=== PATIENT | male | born 1955 | race Caucasian/White ===

== ENCOUNTER 2020-10-11 00:30 | Inpatient (IN) | payer BC, SELFPAY ==
[2020-10-11] MEDS ORDERED: Aspirin 325 MG TAB ONE (04:18)
[2020-10-11] MEDS ORDERED: cloNIDine 0.1 MG TAB ONE (04:18)
[2020-10-11 04:40] LABS: Bilirubin Negative (Negative); Blood, Urine Negative (Negative); Clarity Clear (Clear); Glucose, Urine (Dipstick) 70 mg/dL (Negative); Ketone, Urine Negative (Negative); Leukocyte Negative Leu/uL (Negative); Nitrite Negative (Negative); Protein, Urine (Dipstick) Negative (Neg-Trace); Urobilinogen Normal mg/dL (Less than 2); pH, Urine 6.5 (5.0-9.0)
[2020-10-11 04:51] LABS: #Eosinphils 0.2 thou/uL (0.0-0.7); #Monocytes 0.6 thou/uL (0.11-0.59); #Neutrophils 5.1 thou/uL (1.40-6.50); %Basophils 0.4 % (0.0-1.0); %Eosinophils 2.8 % (0.0-10.0); %Lymphocytes 24.8 % (21.0-51.0); Hemoglobin 11.6 g/dL (14.0-18.0); Mean Corpuscular HGB CONC 33.5 g/dL (32.0-36.0); Mean Corpuscular Hemoglobin 30.7 pg (27.0-31.0); Mean Corpuscular Volume 91.5 fL (78.0-98.0); Mean Platelet Volume 8.7 fL (7.4-10.4); Platelet Count 243 thou/uL (130-400); RBC Distribution Width 13.2 % (11.5-14.5); Red Blood Cell (RBC) Count 3.79 mill/uL (4.70-6.10)
[2020-10-11 05:04] LABS: ALT (SGPT) 14 U/L (8-55); AST (SGOT) 14 U/L (5-34); Albumin 4.2 g/dL (3.4-4.8); Alkaline Phosphatase 93 U/L (40-110); Anion Gap 15 mmol/L (10-20); BUN (Urea Nitrogen) 37 mg/dL (8.4-25.7); Bilirubin, Total 0.4 mg/dL (0.2-1.2); Calc. Creatinine Clearance 0 mL/min (70-130); Carbon Dioxide 26 mmol/L (23-31); Chloride 101 mmol/L (98-107); Globulin 3.4 g/dL (2.4-3.5); Glucose 233 mg/dL (80-115); Potassium 4.6 mmol/L (3.5-5.1); Protein, Total 7.6 g/dL (5.8-8.1); Sodium 137 mmol/L (136-145)
[2020-10-11 05:24] LABS: PTT 26.8 sec (22.9-36.1)
[2020-10-11] MEDS ORDERED: hydrALAZINE 20 MG/ML VIAL ONE (05:26)
[2020-10-11] MEDS ORDERED: Loperamide HCl 2 MG CAP PO PRN (07:38)
[2020-10-11] MEDS ORDERED: HumaLOG 300 UNITS/3 ML VIAL SC PRN (07:38)
[2020-10-11] MEDS ORDERED: Bisacodyl 10 MG SUPP PR PRN (07:38)
[2020-10-11] MEDS ORDERED: HYDROcodone/Acetaminophen 5/325 mg Tablet PO PRN (07:38)
[2020-10-11] MEDS ORDERED: Senokot S 8.6-50 MG TAB PO PRN (07:38)
[2020-10-11] MEDS ORDERED: Dextrose 5% in Water 1,000 ML IV PRN (07:38)
[2020-10-11] MEDS ORDERED: Zolpidem Tartrate 5 MG TAB PO PRN (07:38)
[2020-10-11] MEDS ORDERED: Calcium Carbonate 500 MG ChewTAB PO PRN (07:38)
[2020-10-11] MEDS ORDERED: Labetalol HCl 100 MG/20 ML VIAL SLOW IVP PRN (07:38)
[2020-10-11] MEDS ORDERED: Guaifenesin DM 100-10/5 ML UDCUP PO PRN (07:38)
[2020-10-11] MEDS ORDERED: Sodium Chloride 0.65% Nasal 44 ML BOT EA NARE PRN (07:38)
[2020-10-11] MEDS ORDERED: Ondansetron ODT 4 MG TAB PO PRN (07:38)
[2020-10-11] MEDS ORDERED: Cepastat Lozenges 1 LOZ PO PRN (07:38)
[2020-10-11] MEDS ORDERED: Loratadine 10 MG TAB PO PRN (07:38)
[2020-10-11] MEDS ORDERED: hydrALAZINE 20 MG/ML VIAL SLOW IVP PRN (07:38)
[2020-10-11] MEDS ORDERED: Ondansetron PF 4 MG/2 ML Vial IVP PRN (07:38)
[2020-10-11] MEDS ORDERED: Nitroglycerin 0.4 MG TAB (25 Tab Bottle) SL PRN (07:38)
[2020-10-11] MEDS ORDERED: Dextrose 50% Abboject 50 ML SYRINGE SLOW IVP PRN (07:38)
[2020-10-11] MEDS ORDERED: Iopamidol-370 76% 500 ML 1 ML ONE (09:06)
[2020-10-11] MEDS: Heparin 5,000 UNITS/ML VIAL SC SCH ×2 (09:50→21:07)
[2020-10-11 17:32] VITALS: BMI 32.8
[2020-10-11] MEDS: Atorvastatin Calcium 40 MG TAB PO SCH (20:57)
[2020-10-11 22:22] LABS: Amphetamine Not Detected (NotDetected); Barbiturates Screen Not Detected (NotDetected); Benzodiazepine Screen Not Detected (NotDetected); Cocaine Metabolite Screen Not Detected (NotDetected); Medtox Control Line Valid? VALID (VALID); Medtox Reader # READER 4; Methadone Not Detected (NotDetected); Methamphetamine Not Detected (NotDetected); Opiate Screen Not Detected (NotDetected); Oxycodone Screen Not Detected (NotDetected); Phencyclidine (PCP) Not Detected (NotDetected); THC/Cannabinoid Screen Not Detected (NotDetected); Tricyclic Screen Not Detected (NotDetected)
[2020-10-11 22:39] LABS: Creatinine, Urine 49.62 mg/dL (63-166)
[2020-10-12 05:19] LABS: #Eosinphils 0.2 thou/uL (0.0-0.7); #Lymphocytes 1.3 thou/uL (1.20-3.40); #Monocytes 0.7 thou/uL (0.11-0.59); #Neutrophils 6.3 thou/uL (1.40-6.50); %Basophils 0.4 % (0.0-1.0); %Eosinophils 2.7 % (0.0-10.0); %Lymphocytes 15.3 % (21.0-51.0); %Monocytes 7.7 % (0.0-10.0); %Neutrophils 73.9 % (42.0-75.0); Hemoglobin 12.3 g/dL (14.0-18.0); Mean Corpuscular HGB CONC 33.7 g/dL (32.0-36.0); Mean Corpuscular Hemoglobin 30.9 pg (27.0-31.0); Mean Corpuscular Volume 91.7 fL (78.0-98.0); Mean Platelet Volume 8.1 fL (7.4-10.4); Platelet Count 241 thou/uL (130-400); RBC Distribution Width 13.2 % (11.5-14.5); Red Blood Cell (RBC) Count 3.97 mill/uL (4.70-6.10); White Blood Cell (WBC) Count 8.5 thou/uL (4.8-10.8)
[2020-10-12 05:26] LABS: Hemoglobin A1c 10.2 % (4.0-6.0)
[2020-10-12 06:08] LABS: ALT (SGPT) 12 U/L (8-55); AST (SGOT) 13 U/L (5-34); Alkaline Phosphatase 86 U/L (40-110); Anion Gap 12 mmol/L (10-20); BUN (Urea Nitrogen) 28 mg/dL (8.4-25.7); Bilirubin, Total 0.5 mg/dL (0.2-1.2); Calc. Creatinine Clearance 60 mL/min (70-130); Calcium 9.7 mg/dL (7.8-10.44); Carbon Dioxide 28 mmol/L (23-31); Cardiac Risk 5.6 (Less than 4.5); Chloride 105 mmol/L (98-107); Cholesterol 175 mg/dl (< 200 Desired); Globulin 3.4 g/dL (2.4-3.5); Glucose 181 mg/dL (80-115); HDL Cholesterol 31 mg/dL (>60 Neg Risk); LDL Cholesterol, Calculated 90 mg/dL; Protein, Total 7.4 g/dL (5.8-8.1); Sodium 141 mmol/L (136-145); Triglycerides 269 mg/dL (Less than 150)
[2020-10-12] MEDS: HumaLOG 300 UNITS/3 ML VIAL SC PRN ×3 (06:37→16:28)
[2020-10-12 07:07] LABS: SARS-CoV-2 PCR by NAA Not Detected (NotDetected)
[2020-10-12] MEDS: Heparin 5,000 UNITS/ML VIAL SC SCH ×2 (08:27→20:37)
[2020-10-12] MEDS: Acetaminophen 325 MG TAB PO PRN ×2 (08:29→20:37)
[2020-10-12] MEDS ORDERED: Aspirin Chewable 81 MG TAB PO SCH ×2 (10:00)
[2020-10-12] MEDS: Atorvastatin Calcium 40 MG TAB PO SCH (20:37)
[2020-10-13] MEDS: HumaLOG 300 UNITS/3 ML VIAL SC PRN ×2 (06:15→12:13)
[2020-10-13] MEDS ORDERED: Aspirin Chewable 81 MG TAB PO SCH (09:00)
[2020-10-13] MEDS ORDERED: Clopidogrel Bisulfate 75 MG TAB PO SCH (09:00)
[2020-10-13] MEDS: Heparin 5,000 UNITS/ML VIAL SC SCH (10:01)
[2020-10-13 12:24] VITALS: BP 161/92; TEMP 98.5
[2020-10-13] MEDS ORDERED: Glimepiride 2 MG TAB PO SCH (17:00)
[2020-10-13] MEDS ORDERED: Gabapentin 300 MG CAP PO SCH (21:00)
[2020-10-13] MEDS ORDERED: cloNIDine 0.2 MG TAB PO SCH (21:00)
[2020-10-14] MEDS ORDERED: Pioglitazone HCl 45 MG TAB PO SCH (09:00)
[2020-10-14] MEDS ORDERED: Amlodipine 10 MG TAB PO SCH (09:00)
== END 2020-10-13 14:40 | disposition home or self-care (01) | DRG 64 ==
LOC: ERS 00:30 → ERHOLD 04:37 → OBSVTOIN 13:06 → 2SW 16:49 → 2SE 10-12 18:33
PROVIDERS: ADMIT Student in an Organized Health Care Education/Training Program; ATTEND Emergency Medicine
DX: I63.233 Cerebral infarction due to unspecified occlusion or stenosis of bilateral carotid arteries (principal); I77.71 Dissection of carotid artery; N17.9 Acute kidney failure, unspecified; I67.4 Hypertensive encephalopathy; Z20.822 Contact with and (suspected) exposure to COVID-19; R29.702 NIHSS score 2; E11.9 Type 2 diabetes mellitus without complications; I10 Essential (primary) hypertension; E78.5 Hyperlipidemia, unspecified; I16.0 Hypertensive urgency; D64.9 Anemia, unspecified; E66.9 Obesity, unspecified; Z68.32 Body mass index [BMI] 32.0-32.9, adult; Z79.899 Other long term (current) drug therapy; Z79.84 Long term (current) use of oral hypoglycemic drugs
CPT/HCPCS: 36415; 36416; 70496; 70498; 70551; 80053; 80061; 80306; 81003; 82570; 83036; 84156; 84300; 84443; 84484; 85025; 85610; 85730; 93005; 93306; 95712; 95819; 95957; 96374; G0378; J0360; J1644; J1815; Q9967; U0003; U0005

== ENCOUNTER 2020-10-25 16:46 | Outpatient (CLI) | payer BC ==
[2020-10-26 07:42] LABS: SARS-CoV-2 PCR by NAA Not Detected (NotDetected)
== END 2020-10-25 16:47 | disposition home or self-care (01) ==
LOC: LABBT 16:46
PROVIDERS: ATTEND Thoracic Surgery (Cardiothoracic Vascular Surgery)
DX: Z01.812 Encounter for preprocedural laboratory examination (principal); I65.22 Occlusion and stenosis of left carotid artery; Z20.822 Contact with and (suspected) exposure to COVID-19
CPT/HCPCS: U0003; U0005

== ENCOUNTER 2020-10-25 17:00 | Inpatient (IN) | payer BC ==
[2020-10-26] MEDS ORDERED: Dexamethasone 4 mg/ml Vial ONE (09:47)
[2020-10-26] MEDS ORDERED: EPINEPHrine 1 MG/ML AMP ONE (09:47)
[2020-10-26] MEDS ORDERED: Protamine Sulfate 50 MG/5 ML VIAL ONE (09:47)
[2020-10-26] MEDS ORDERED: Heparin 5,000 UNITS/ML VIAL ONE (09:47)
[2020-10-26] MEDS ORDERED: Bupivacaine PF 0.5% 30 ML VIAL ONE (09:47)
[2020-10-26] MEDS ORDERED: Fentanyl 100 MCG/2 ML VIAL ONE (10:31)
[2020-10-26 10:46] LABS: #Eosinphils 0.3 thou/uL (0.0-0.7); #Lymphocytes 1.5 thou/uL (1.20-3.40); #Monocytes 0.7 thou/uL (0.11-0.59); #Neutrophils 9.8 thou/uL (1.40-6.50); %Basophils 0.2 % (0.0-1.0); %Eosinophils 2.6 % (0.0-10.0); %Lymphocytes 12.1 % (21.0-51.0); %Monocytes 5.7 % (0.0-10.0); %Neutrophils 79.4 % (42.0-75.0); Hemoglobin 11.6 g/dL (14.0-18.0); Mean Corpuscular HGB CONC 32.2 g/dL (32.0-36.0); Mean Corpuscular Hemoglobin 30.4 pg (27.0-31.0); Mean Corpuscular Volume 94.4 fL (78.0-98.0); Platelet Count 279 thou/uL (130-400); RBC Distribution Width 13.1 % (11.5-14.5); Red Blood Cell (RBC) Count 3.82 mill/uL (4.70-6.10); White Blood Cell (WBC) Count 12.3 thou/uL (4.8-10.8)
[2020-10-26] MEDS ORDERED: Ondansetron PF 4 MG/2 ML Vial ONE (11:07)
[2020-10-26] MEDS ORDERED: PROPOFOL 200 MG/20 ML VIAL ONE (11:07)
[2020-10-26] MEDS ORDERED: Rocuronium Bromide 10 MG/ML (10ML VIAL) ONE (11:07)
[2020-10-26] MEDS ORDERED: Dexamethasone 20 MG/5 ML VIAL ONE (11:07)
[2020-10-26] MEDS ORDERED: Glycopyrrolate 0.2 MG/ML 5 ML SYRINGE ONE (11:07)
[2020-10-26] MEDS ORDERED: Lidocaine 1% PF 5 ML VIAL ONE (11:07)
[2020-10-26 11:12] LABS: Anion Gap 16 mmol/L (10-20); BUN (Urea Nitrogen) 25 mg/dL (8.4-25.7); Calc. Creatinine Clearance 57 mL/min (70-130); Calcium 9.3 mg/dL (7.8-10.44); Carbon Dioxide 20 mmol/L (23-31); Chloride 106 mmol/L (98-107); Glucose 154 mg/dL (80-115); Sodium 138 mmol/L (136-145)
[2020-10-26] MEDS ORDERED: Promethazine HCl 25 MG/ML VIAL IVPB PRN (12:57)
[2020-10-26] MEDS ORDERED: Promethazine HCl 25 MG/ML VIAL IM PRN ×2 (12:57→15:34)
[2020-10-26] MEDS ORDERED: Ondansetron HCl/PF 4 MG/2 ML Vial IVP PRN (12:57)
[2020-10-26] MEDS ORDERED: Labetalol HCl 100 MG/20 ML VIAL ONE (13:08)
[2020-10-26] MEDS ORDERED: Meperidine HCl/PF 25 MG/ML VIAL ONE (13:18)
[2020-10-26] MEDS ORDERED: hydrALAZINE 20 MG/ML VIAL ONE (13:37)
[2020-10-26] MEDS ORDERED: hydrALAZINE 20 MG/ML VIAL SLOW IVP PRN (15:34)
[2020-10-26] MEDS ORDERED: Acetaminophen ER (8hr) 650 MG TAB PO PRN (15:34)
[2020-10-26] MEDS ORDERED: Acetaminophen 325 MG TAB PO PRN (15:34)
[2020-10-26] MEDS ORDERED: Ondansetron PF 4 MG/2 ML Vial IVP PRN (15:34)
[2020-10-26] MEDS ORDERED: traMADol HCl 50 MG TAB PO PRN ×2 (15:34)
[2020-10-26] MEDS ORDERED: Fentanyl 100 MCG/2 ML VIAL SLOW IVP PRN (15:34)
[2020-10-26] MEDS ORDERED: Nitroglycerin 50 MG/250 ML BOT 250 ML IVPB PRN (15:34)
[2020-10-26] MEDS ORDERED: Phenylephrine 40 MG in Sodium Chloride 0.9% 250 ML 250 ML IVPB PRN (15:34)
[2020-10-26] MEDS: Sodium Chloride 0.9% 1,000 ML IV SCH (16:28)
[2020-10-26] MEDS: Glimepiride 2 MG TAB PO SCH (16:56)
[2020-10-26] MEDS: Insulin Regular 300 UNITS/3 ML VIAL SC PRN ×2 (16:57→21:20)
[2020-10-26] MEDS: CEFAZOLIN 2 GM in Premix Bag 1 BAG IVPB SCH (16:57)
[2020-10-26] MEDS ORDERED: Prevnar 13-Val Conj/PF 0.5 ML SYRINGE IM ONE (18:00)
[2020-10-26] MEDS ORDERED: Gabapentin 300 MG CAP PO SCH (21:00)
[2020-10-26] MEDS ORDERED: Atorvastatin Calcium 40 MG TAB PO SCH (21:00)
[2020-10-27] MEDS: Insulin Regular 300 UNITS/3 ML VIAL SC PRN ×4 (01:20→16:18)
[2020-10-27] MEDS: Sodium Chloride 0.9% 1,000 ML IV SCH (01:52)
[2020-10-27] MEDS: CEFAZOLIN 2 GM in Premix Bag 1 BAG IVPB SCH ×2 (01:53→09:26)
[2020-10-27 05:38] VITALS: BMI 35.7
[2020-10-27] MEDS ORDERED: hydrALAZINE 20 MG/ML VIAL SLOW IVP PRN ×2 (07:07)
[2020-10-27] MEDS: Glimepiride 2 MG TAB PO SCH (08:37)
[2020-10-27] MEDS: Metoprolol Tartrate 25 MG TAB PO SCH ×2 (08:37→08:44)
[2020-10-27 08:39] VITALS: BP 131/69
[2020-10-27] MEDS ORDERED: NIFEdipine XL 90 MG TAB PO SCH (09:00)
[2020-10-27] MEDS ORDERED: Clopidogrel Bisulfate 75 MG TAB PO SCH (09:00)
[2020-10-27] MEDS ORDERED: CeleCOXIB 100 MG CAP PO SCH (09:00)
[2020-10-27] MEDS ORDERED: Aspirin Chewable 81 MG TAB PO SCH (09:00)
[2020-10-27] MEDS ORDERED: Pioglitazone HCl 45 MG TAB PO SCH (09:00)
[2020-10-27] MEDS ORDERED: Lisinopril 10 MG TAB PO SCH (09:00)
[2020-10-27 14:24] VITALS: TEMP 98.6
== END 2020-10-27 16:56 | disposition home or self-care (01) | DRG 39 ==
LOC: SURG A 10-26 09:17 → CCU 10-26 15:19 → EDSTATUS 10-26 17:00
PROVIDERS: ADMIT Thoracic Surgery (Cardiothoracic Vascular Surgery); ATTEND Thoracic Surgery (Cardiothoracic Vascular Surgery)
PROC: 03CL0ZZ Extirpation of Matter from Left Internal Carotid Artery, Open Approach (ICD-10-PCS; principal; 2020-10-26)
PROC: 03UL0KZ Supplement Left Internal Carotid Artery with Nonautologous Tissue Substitute, Open Approach (ICD-10-PCS; 2020-10-26)
DX: I65.22 Occlusion and stenosis of left carotid artery (principal); I10 Essential (primary) hypertension; E78.5 Hyperlipidemia, unspecified; E66.9 Obesity, unspecified; J30.2 Other seasonal allergic rhinitis; E11.9 Type 2 diabetes mellitus without complications; Z87.891 Personal history of nicotine dependence; Z68.35 Body mass index [BMI] 35.0-35.9, adult; Z79.82 Long term (current) use of aspirin; Z79.84 Long term (current) use of oral hypoglycemic drugs; Z79.899 Other long term (current) drug therapy
CPT/HCPCS: 36416; 80048; 85025; 94640; J0171; J0360; J0690; J1100; J1642; J1644; J1815; J2175; J2405; J2704; J2720; J3010; J7620; S0020; U0003; U0005

== ENCOUNTER 2020-11-11 10:17 | Outpatient (CLI) | payer BC ==
[2020-11-11 11:24] LABS: Hemoglobin 10.6 g/dL (13.5-17.5); Mean Corpuscular HGB CONC 32.8 g/dL (32.0-36.0); Mean Corpuscular Hemoglobin 29.6 pg (27.0-33.0); Mean Corpuscular Volume 90.2 fl (81.2-95.1); Mean Platelet Volume 10.4 fl (7.4-10.4); Platelet Count 292 10x3/uL (150-450); RBC Distribution Width 13.3 % (11.5-14.5); Red Blood Cell (RBC) Count 3.58 10x6/uL (4.32-5.72); White Blood Cell (WBC) Count 8.6 10x3/uL (3.5-10.5)
[2020-11-11 11:41] LABS: Anion Gap 14 mmol/L (10-20); BUN (Urea Nitrogen) 21 mg/dL (8.4-25.7); Calc. Creatinine Clearance 0 mL/min (70-130); Calcium 9.7 mg/dL (7.8-10.44); Carbon Dioxide 23 mmol/L (23-31); Chloride 101 mmol/L (98-107); Glucose 121 mg/dL (80-115); Potassium 5.1 mmol/L (3.5-5.1); Sodium 133 mmol/L (136-145)
[2020-11-12 14:45] LABS: SARS-CoV-2 PCR by NAA Not Detected (NotDetected)
== END 2020-11-11 10:18 | disposition home or self-care (01) ==
LOC: LABBT 10:17
PROVIDERS: ATTEND Thoracic Surgery (Cardiothoracic Vascular Surgery)
DX: Z01.818 Encounter for other preprocedural examination (principal); I65.21 Occlusion and stenosis of right carotid artery; Z20.822 Contact with and (suspected) exposure to COVID-19
CPT/HCPCS: 80048; 85027; 93005; 93010; U0003; U0005